=== PATIENT | male | born 1995 | race Caucasian/White ===

== ENCOUNTER → 2024-12-28 10:07 | Outpatient (CLI) | payer OTHER, SELFPAY ==
[2024-12-28 11:21] LABS: Alanine Aminotransferase 34 IU/L (<50); Albumin 5.1 g/dL (3.5-5.0); Albumin Globulin Ratio 1.8 (1.0-2.8); Alkaline Phosphatase 59 U/L (38-126); Aspartate Aminotransferase 31 IU/L (17-59); BUN Creatinine Ratio 18.3 (6-22); Bilirubin Total 1.3 mg/dL (0.2-1.3); Blood Urea Nitrogen 21 mg/dL (9-20); Calcium 9.7 mg/dL (8.4-10.2); Carbon Dioxide 26 mmol/L (22-32); Chloride 101 mmol/L (98-107); Cholesterol 148 mg/dL (140-199); Estimated Glomerular Filt Rate > 60 mL/min (>60); Globulin 2.9 g/dL (1.7-4.1); Glucose 93 mg/dL (70-100); HDL Cholesterol 36 mg/dL (40-60); HEMOLYSIS < 15 (0-50); LDL Cholesterol Calculated 97 mg/dL (<100); Potassium 4.2 mmol/L (3.4-5.1); Sodium 137 mmol/L (137-145); Triglycerides 74 mg/dL (35-150)
[2024-12-28 11:49] LABS: Thyroid Stimulating Hormone 0.559 uIU/mL (0.47-4.68)
[2024-12-29 06:38] LABS: Rubeola Measles IgG > 300.0 AU/mL (Immune >16.4); Var-Zoster Immunity Screen Reactive (Non Reactive)
[2024-12-29 15:40] LABS: Hepatitis B Surface Antigen NEGATIVE s/c (NEGATIVE); Rubella Antibody IgG 67.7 IU/mL (>15)
[2024-12-30 15:10] LABS: QuantiFERON Mitogen Value >10.00 IU/mL (.); QuantiFERON Nil Value 0.07 IU/mL (.); QuantiFERON TB Gold Plus Negative (Negative); QuantiFERON TB1 Ag Value 0.09 IU/mL (.); QuantiFERON TB2 Ag Value 0.08 IU/mL (.)
[2024-12-31 04:10] LABS: Hepatitis B Surf Ab Qualitativ Non Reactive (.)
== END ==
PROVIDERS: PCP Family Medicine; Referring Provider Family Medicine; Visit Provider Family Medicine
DX: Z01.84 Encounter for antibody response examination (principal); Z13.220 Encounter for screening for lipoid disorders
CPT/HCPCS: 36415; 80053; 80061; 84443; 86480; 86706; 86735; 86762; 86765; 86787; 87340